=== PATIENT | female | born 1955 | race Caucasian/White ===

== ENCOUNTER 2022-10-12 07:30 | Day surgery (SDC) | payer MEDICARE, OTHER ==
--- NOTE | 2022-10-04 14:34 | NUR ---
CALL TO [facility] FOR PROG NOTE AND MOST CURRENT EKG FROM 08/11 THIS YEARS. THEY WILL SEND THEN ABOVE ITEMS.
[~2022-10-12] VITALS: Ht 170.2 cm; Wt 79.5 kg
--- NOTE | ~2022-10-12 | OR ---
[facility] [address], [place] [address] Draft DATE OF OPERATION: 10/12/2022 SURGEON: Florentino Rosas MD PREOPERATIVE DIAGNOSIS: Lateral meniscus tear, right knee. POSTOPERATIVE DIAGNOSIS: Lateral meniscus tear, right knee. PROCEDURE PERFORMED: Right knee arthroscopy with partial and lateral meniscectomy. 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 ANESTHESIA: General. BLOOD LOSS: Minimal. BRIEF HISTORY: Suzy is a 67-year-old female with pain and locking in her knee. MRI was consistent with a fairly significant mid lateral meniscus tear. Risks and benefits of operative treatment were discussed with her and she elected to proceed. Once consent was obtained, she was taken to the operating room. After adequate anesthesia, she was placed on the operating room table. Left leg was flexed, abducted and externally rotated on a well-padded leg rogers, right was placed in a well-padded proximal thigh leg rogers and prepped and draped in a standard sterile fashion. Standard inferolateral and superolateral portals were made and the scope was introduced into the knee. ARTHROSCOPIC FINDINGS: Moderate synovitis was noted throughout the knee. She did have moderate chondrocalcinosis throughout both menisci and some of the articular surfaces. The medial and lateral gutters were clear. ACL and PCL were intact. 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 The meniscus was intact. Lateral meniscus showed a large degenerative tear in the midbody laterally. This extended anteriorly with a flap. There was grade 1 chondromalacia in both sides of the joint. PATIENT NAME: LASHON OLIVEROS OPERATIVE REPORT DATE OF : 55 REPORT #: [id number] PHYSICIAN: FLORENTINO ROSAS MD PCP: KAYLEY MCHUGH PAC REPORT IS CONFIDENTIAL AND NOT TO BE RELEASED WITHOUT AUTHORIZATION [facility] [address], [place] [address] Draft DESCRIPTION OF OPERATION: Standard inferomedial portal was made and straight and curved biters were used to trim the meniscus tear back to a stable rim. This was then smoothed using shaver and all debris was evacuated. Once we had the meniscus feathered out, the scope was withdrawn and portals were closed with 3-0 nylon. The knee was injected with 60 mg of Toradol at the end of the case. The wounds were dressed with Adaptic, ABD, and Blas wrap. She tolerated the procedure well. All sponge, needle, and instrument counts were correct. Florentino Rosas MD BA/MODL /[id number] Copies: ~ PATIENT NAME: LASHON OLIVEROS OPERATIVE REPORT DATE OF : 55 REPORT #: [id number] PHYSICIAN: FLORENTINO ROSAS MD PCP: KAYLEY MCHUGH PAC REPORT IS CONFIDENTIAL AND NOT TO BE RELEASED WITHOUT AUTHORIZATION
[~2022-10-12 07:30] MED LIST: CALCIUM500 MG PO; NAPROXEN250 MG PO; OSTERA TABLET1 EACH PO; PROAIR HFA8.5 GM INH; QVAR7.3 G1 INH; RANITIDINE HCL150 MG PO; SEREVENT DISKU1 PUFF INH
[2022-10-12] MEDS ORDERED: HYDROCODON-ACE1 EA10 PO (10:06)
[2022-10-12] MEDS ORDERED: CELECOXIB200 MG PO (10:06)
--- NOTE | 2022-10-12 10:11 | NUR ---
10/12/22 1010 Sheets,Janae 1003 PT ARRIVED TO PACU WITH ORAL AIRWAY IN PLACE AND JAW THRUST TO MAINTAIN AIRWAY, 10L IN PLACE VIA MASK. PT NONAORUSABLE. 1010 JAW THRUST NO LONGER NEEDED.
--- NOTE | 2022-10-12 10:44 | NUR ---
1035 PATIENT BACK TO ROOM 3. REPORT RECIEVED FROM ASAF PEGUERO. PATIENT IS ALERT AND ORIENTED. BREATHING EQUAL AND UNLABORED. OXYGEN SATURATIONS ABOVE 90% ON ROOM AIR. PATIENT STATES PAIN BETWEEN A 3 OR 4. BUT TOLERABLE. PATIENT DENIES BEING NAUSEATED. DRESSING CLEAN, DRY AND INTACT. IVF INFUSING. SCDS ON. CALL LIGHT WITHIN REACH NO FUTHER NEEDS. NO QUESTIONS AT THIS TIME. AT BEDSIDE. WATER AND JELLO GIVEN.
--- NOTE | 2022-10-12 11:25 | NUR ---
1100 PATIENT AMBULATED TO THE BATHROOM. PATIENT WEIGHT BEARING TOLERTED. TOLERATED IT WELL. PATIENT BACK TO ROOM. STATES PAIN IS ABOUT A 3/10 BUT TOLERABLE. CALL LIGHT WITHIN REACH NO FUTHER NEEDS. NO QUESTIONS AT THIS TIME.
--- NOTE | 2022-10-12 11:42 | NUR ---
PT ALERT, ORIENTED AND SUPPORTED BY HER LAURA. CONNECTED WITH BOTH RN'S WERE CHECKING PT IN. GAVE ENCOURAGEMENT, LAURA WILL RUN AN ERRAND AND RETURN. GAVE BLESSING AND WILL FOLLOW NEEDED
--- NOTE | 2022-10-12 11:56 | NUR ---
1135 PATIENT HAS MET DISCHARGE CRITERIA. PATIENT ABLE TO DRESS SELF AND TOLERATED IT WELL. PATIENT GIVEN DISCHARGE INSTRUCTIONS AND UNDERSTOON. NO QUESTIONS AT THIS TIME. PATIENT WHEELED OUT OF FACILITY TO PRIVATE AUTO WITH . NO FUTHER NEEDS.
== END 2022-10-12 11:35 | disposition home or self-care (01) ==
LOC: DS 07:30
PROVIDERS: ATTEND Specialist
PROC: 0SBC4ZZ Excision of Right Knee Joint, Percutaneous Endoscopic Approach (ICD-10-PCS; principal; 2022-10-12 09:45)
DX: S83.281A Other tear of lateral meniscus, current injury, right knee, initial encounter (principal); X58.XXXA Exposure to other specified factors, initial encounter; Z88.2 Allergy status to sulfonamides; Z88.0 Allergy status to penicillin
CPT/HCPCS: J0131; J0690; J1100; J1885; J2250; J2405; J2704; J2765; J3010; J7121